=== PATIENT | female | born 1985 | race Caucasian/White ===

== ENCOUNTER → 2018-11-30 | Outpatient (CLI) | payer OTHER ==
[~2018-11-30] MED LIST: AMOXICILLIN875 MG PO; AURODEX 54 MG/M10 ML OT; BRET2.5 PO; BRETHINE PO; CIPRO 500MG TA500 MG PO; CIPRO HC OTIC S10 ML OT; LANTUS SOLOS100 U/ML SC; NAPROSYN500 MG PO; NO HOME MEDICATIONS; NORCO 325 MG-51 TAB PO; PRENATAL1 TA1 PO; PROCARDIA XL 3030 MG PO; PROCARDIA XL 6060 MG PO; PROMETHAZINE12.5 M5 PO; SERTRALINE; SLOW FE45 MG PO; ZOFRAN4 MG PO; ZOLOFT PO
== END ==
LOC: COL.RAD 10:05
DX: M51.16 Intervertebral disc disorders with radiculopathy, lumbar region (principal); M48.061 Spinal stenosis, lumbar region without neurogenic claudication

== ENCOUNTER → 2021-07-12 | Outpatient (CLI) | payer OTHER | LOC: COL.RAD 10:01 | DX: R10.2 Pelvic and perineal pain (principal) ==

== ENCOUNTER → 2021-11-02 | Outpatient (CLI) | payer OTHER | LOC: COL.RAD 07:54 | DX: M51.26 Other intervertebral disc displacement, lumbar region (principal); M51.27 Other intervertebral disc displacement, lumbosacral region; M48.061 Spinal stenosis, lumbar region without neurogenic claudication; M48.07 Spinal stenosis, lumbosacral region ==